=== PATIENT | female | born 1965 | race Caucasian/White ===

== ENCOUNTER → 2025-01-14 11:31 | Outpatient (REF) | payer OTHER, SELFPAY | LOC: PAVMRI 11:31 | PROVIDERS: ATTENDING PHYSICIAN Otolaryngology; FAMILY PHYSICIAN Family Medicine | DX: D33.3 Benign neoplasm of cranial nerves (principal); R42 Dizziness and giddiness | CPT/HCPCS: 70553; A9575 ==

== ENCOUNTER → 2025-02-15 07:33 | Outpatient (REF) | payer OTHER, SELFPAY | LOC: HWRAD 07:33 | PROVIDERS: ATTENDING PHYSICIAN Obstetrics & Gynecology; FAMILY PHYSICIAN Family Medicine | DX: N83.201 Unspecified ovarian cyst, right side (principal) | CPT/HCPCS: 76830; 76856 ==

== ENCOUNTER → 2025-02-23 17:50 | Outpatient (REF) | payer OTHER, SELFPAY | LOC: WDC 17:50 | PROVIDERS: ATTENDING PHYSICIAN Obstetrics & Gynecology; FAMILY PHYSICIAN Family Medicine | DX: Z12.31 Encounter for screening mammogram for malignant neoplasm of breast (principal) | CPT/HCPCS: 77063; 77067 ==